=== PATIENT | male | born 1940 | race Caucasian/White ===

== ENCOUNTER 2019-06-09 11:13 | Outpatient (CLI) | payer MEDICARE, OTHER, SELFPAY ==
[2019-06-09 11:50] LABS: Basophils % 0.4 %; Eosinophils # 0.2 10^3/uL (0.0-0.8); Eosinophils % 1.8 %; Hematocrit 38.8 % (42.0-52.0); Hemoglobin 12.2 g/dL (11.7-16.6); Lymphocytes # 1.9 10^3/uL (0.8-4.8); Lymphocytes % 17.1 %; Mean Corpuscular HGB Conc 31.4 g/dL (30.0-36.0); Mean Corpuscular Hemoglobin 30.1 pg (28.0-34.0); Mean Corpuscular Volume 95.8 fL (80-94); Mean Platelet Volume 9.3 fL (7.4-10.4); Monocytes # 0.6 10^3/uL (0.2-0.9); Monocytes % 5.9 %; Neutrophils # 8.1 10^3/uL (1.8-7.7); Neutrophils % 74.4 %; Nucleated Red Blood Cells % 0 %; Platelet Count 323 10^3/cmm (130-400); Red Blood Count 4.05 10^6/uL (4.1-5.3); Red Cell Distribution Width 14.3 % (12.1-15.1); White Blood Count 10.9 10^3/uL (4.0-10.0)
[2019-06-09 12:20] LABS: Albumin Level 3.6 g/dL (3.5-5.2); Anion Gap 14.5 (5-19); Blood Urea Nitrogen 24 mg/dL (8-23); Calcium 9.7 mg/dL (8.5-10.5); Carbon Dioxide 30 mmol/L (22-29); Chloride 103 mmol/L (98-107); Glucose 244 mg/dL (65-115); Phosphorus 3.3 mg/dL (2.5-4.5); Potassium 4.5 mmol/L (3.5-5.1); Sodium 143 mmol/L (136-145)
[2019-06-09 12:22] LABS: Creatinine Urine, Random 97 mg/dL (39-259); Microalbum Creatinine Ratio Ur 10 mg/dL (0-20); Microalbumin Random Urine 1 ug/dL (0-20)
[2019-06-09 13:24] LABS: Calcium 9.6 mg/dL (8.5-10.5); Parathyroid Hormone 100.2 pg/mL (15-65)
[2019-06-09 13:42] LABS: 25 Hydroxy Vitamin D 37 ng/mL (30-100)
== END 2019-06-09 11:14 | disposition home or self-care (01) ==
LOC: LAB 11:15
PROVIDERS: Family Provider Family Medicine; PCP Family Medicine; Visit Provider Nurse Practitioner Family
DX: N18.3 Chronic kidney disease, stage 3 (moderate) (principal)
CPT/HCPCS: 36415; 80069; 82044; 82306; 82310; 83970; 85025

== ENCOUNTER → 2019-08-12 11:13 | Outpatient (BNVA) | payer MEDICARE, OTHER, SELFPAY | PROVIDERS: Family Provider Family Medicine; PCP Family Medicine; Referring Provider Family Medicine; Visit Provider Family Medicine | DX: E11.22 Type 2 diabetes mellitus with diabetic chronic kidney disease (principal); N18.2 Chronic kidney disease, stage 2 (mild); E78.00 Pure hypercholesterolemia, unspecified | CPT/HCPCS: 80053; 80061; 83036 ==

== ENCOUNTER → 2019-08-21 09:59 | Outpatient (BNVA) | payer MEDICARE, OTHER, SELFPAY | PROVIDERS: Family Provider Family Medicine; PCP Family Medicine; Visit Provider Family Medicine | DX: E11.9 Type 2 diabetes mellitus without complications (principal) | CPT/HCPCS: 83036 ==

== ENCOUNTER 2019-11-30 09:13 | Outpatient (CLI) | payer MEDICARE, OTHER, SELFPAY ==
[2019-11-30 10:23] LABS: Basophils % 0.5 %; Eosinophils # 0.3 10^3/uL (0.0-0.8); Eosinophils % 3.5 %; Hematocrit 43.6 % (42.0-52.0); Hemoglobin 13.5 g/dL (11.7-16.6); Lymphocytes # 2.3 10^3/uL (0.8-4.8); Lymphocytes % 27.6 %; Mean Corpuscular Hemoglobin 30.5 pg (28.0-34.0); Mean Corpuscular Volume 98.6 fL (80-94); Mean Platelet Volume 9.5 fL (7.4-10.4); Monocytes # 0.6 10^3/uL (0.2-0.9); Monocytes % 7.3 %; Neutrophils # 5.04 10^3/uL (1.8-7.7); Neutrophils % 60.9 %; Nucleated Red Blood Cells % 0 %; Platelet Count 299 10^3/cmm (130-400); Red Blood Count 4.42 10^6/uL (4.1-5.3); Red Cell Distribution Width 14.5 % (12.1-15.1); White Blood Count 8.3 10^3/uL (4.0-10.0)
[2019-11-30 10:51] LABS: Albumin Level 4.2 g/dL (3.5-5.2); Anion Gap 12.5 (5-19); Blood Urea Nitrogen 30 mg/dL (8-23); Calcium 9.1 mg/dL (8.5-10.5); Carbon Dioxide 28 mmol/L (22-29); Chloride 106 mmol/L (98-107); Glucose 128 mg/dL (65-115); Phosphorus 3.2 mg/dL (2.5-4.5); Potassium 4.5 mmol/L (3.5-5.1); Sodium 142 mmol/L (136-145)
[2019-11-30 11:06] LABS: Calcium 9.8 mg/dL (8.5-10.5); Parathyroid Hormone 125.1 pg/mL (15-65)
[2019-11-30 11:23] LABS: Creatinine Urine, Random 44 mg/dL (39-259)
[2019-11-30 11:28] LABS: Microalbum Creatinine Ratio Ur 23 mg/dL (0-20); Microalbumin Random Urine 1 ug/dL (0-20)
== END 2019-11-30 09:14 | disposition home or self-care (01) ==
LOC: LAB 09:15
PROVIDERS: PCP Family Medicine; Visit Provider Internal Medicine Nephrology
DX: N18.3 Chronic kidney disease, stage 3 (moderate) (principal)
CPT/HCPCS: 36415; 80069; 82044; 82310; 83970; 85025

== ENCOUNTER 2019-12-09 16:47 | Inpatient (IN) | payer MEDICARE, OTHER, SELFPAY ==
[2019-12-09] VITALS (12 sets, daily range): BP systolic 98–137; BP diastolic 61–87; PULSE 62–79; RESP 16–20; TEMP 36.6–36.9; O2SAT 92–100; BMI 26.3
--- NOTE | 2019-12-09 17:03 | XR_ITS ---
WS: [id number] EXAM: RIGHT KNEE: 3 VIEWS DATE OF EXAMINATION: 12/09/2019, 1722 hours COMPARISON: None. HISTORY: Patient is 78 years old with knee pain status post trauma. FINDINGS: Bone density is decreased. No fracture or dislocation is seen. No joint effusion. Extra articular sof t tissues are unremarkable. Arterial calcified plaque formation demonstrated. XR/XR knee RT 3V* [id number] IMPRESSION: No acute bony abnormality.
--- NOTE | 2019-12-09 17:03 | XR_ITS ---
WS: [id number] EXAM: RIGHT HIP: 2 VIEWS DATE OF EXAMINATION: 12/09/2019, 1727 hours COMPARISON: None. HISTORY: Patient is 78 years old with hip pain status post fall. FINDINGS: Bone density is decreased. There are findings of a subcapital femoral neck fracture laterally which t raverses 2 the mid cervical region medially with impaction and slight valgus alignment. No dislocatio n. No definite acetabular fracture. No soft tissue abnormality is seen. XR/XR hip RT 2-3V wo/w pel* [id number] IMPRESSION: Right femur subcapital to mid cervical femoral neck fracture with impaction and valgus alignment.
[2019-12-09] MEDS: morphine 4 mg/mL SDV 1 mL IVP (17:07)
--- NOTE | 2019-12-09 17:19 | ED_ITS ---
HPI - Fall General: Chief Complaint: Fall Stated Complaint: FALL, R HIP PAIN, R ELBOW PAIN Time Seen by Provider: 12/09/19 16:47 History of Present Illness: HPI Narrative: 78-year-old male brought in by EMS after a fall. Is complaining of right hip pain right elbow pain he has an abrasion on the extensor surface of his right elbow it hold his hip in a flexed position complaining of pain mostly laterally. He was coming out of her garage and stumbled and fell landing on the right hip and elbow he did not strike his head he did not lose consciousness. He denies any other injuries. Not on any anticoagulants no recent respiratory symptoms complaint: fall Onset (ago): minute(s) Fall from: standing Fall witnessed: no Place fall occurred: home Loss of consciousness: None Prolonged down time: minute(s) Symptoms prior to fall: none Context: tripped/slipped Location of injury: pelvis (Right hip) Location of injury - extremities: Right: knee Severity: moderate Associated symptoms-after fall: Reports no associated symptoms; Denies abdominal pain or chest pain Review of Systems Const: Denies: fever(s), chills, body aches, change in appetite, fatigue or malaise ENMT: Denies: throat pain, ear or mastoid pain, nasal discharge or nasal congestion Card: Denies: chest pain, edema, dyspnea on exertion or orthopnea Resp: Denies: dyspnea, productive cough or non-productive cough GI: Denies: abdominal pain, nausea, vomiting, hematemesis, coffee ground emesis, diarrhea, constipation, bloating, hematochezia or melena : Denies: flank pain, dysuria, urinary frequency or urinary urgency Skin/Breast: Denies: rash or pruritus PFSH ED PFSH: Medical History Benign essential HTN CKD stage 3 secondary to diabetes Edema Gout Heart murmur Last echocardiogram 2016 demonstrated thickened mitral valve, normal EF, moderate pulmonary hypertension, aortic valve calcification but no stenosis History of arm fracture History of colon polyps Type 2 diabetes mellitus Surgical History History of foot surgery History of lumbar surgery History of tonsillectomy Family History Other Diabetes Social History Smoking and tobacco status: never smoked Alcohol intake: never Physical Exam Const: COMMON NORMALS: no acute distress GENERAL APPEARANCE: cooperative and comfortable ORIENTATION/CONSCIOUSNESS: Yes awake, Yes oriented to person, Yes oriented to place and Yes oriented to time HENMT: COMMON NORMALS: normocephalic and atraumatic HEAD & SCALP: normocephalic and atraumatic Eye: COMMON NORMALS: Equal, round and reactive pupils present, EOMs intact bilaterally, conjunctivae normal and no scleral icterus CONJUNCTIVA: Yes conjunctivae normal PUPIL: Yes Equal, round and reactive pupils present Neck/C-Spine: COMMON NORMALS: full ROM, no lymphadenopathy, supple and no JVD Lymph: LYMPHATIC: no lymphadenopathy noted and no lymphedema noted Resp: COMMON NORMALS: normal respiratory effort, No retractions, No use of accessory muscles and clear to auscultation bilaterally AUSCULTATION: clear to auscultation bilaterally Cardio: COMMON NORMALS: no JVD, regular rate, regular rhythm and No murmurs present (Cardio) RATE: regular rate RHYTHM: regular rhythm GI: COMMON NORMALS: Soft to palpation and No hepatosplenomegaly present AUSCULTATION: Yes normoactive bowel sounds PALPATION: Yes Soft to palpation, No Tenderness to palpation present (GI), No Guarding due to palpation present (GI) and Yes No hepatosplenomegaly present Extremity: COMMON NORMALS: normal to inspection, capillary refill normal, no clubbing, cyanosis or edema, no calf tenderness and no pedal edema Neuro: SENSORIUM/ORIENTATION: Yes oriented to person, Yes oriented to place and Yes oriented to time Course Vital Signs: Vital signs: Vital Signs Temperature 98.6 F 12/12/19 13:53 Pulse Rate 83 12/12/19 13:53 Respiratory Rate 18 12/12/19 13:53 Blood Pressure 137/69 12/12/19 13:53 Pulse Oximetry 96 12/12/19 13:53 MDM - Fall MDM Narrative: Medical decision making narrative: Patient be admitted with right hip fracture. Hospitalist for medical management Ortho consult for surgical repair of hip see admission H&P orders written Lab Data: Labs: Lab Results 08/19/20 08/19/20 08/19/20 Range/Units 17:25 17:25 17:25 WBC 8.3 (4.0-10.0) 10^3/ uL RBC 4.35 (4.1-5.3) 10^6/u L Hgb 13.5 (11.7-16.6) g/dL Hct 42.3 (42.0-52.0) % MCV 97.2 H (80-94) fL MCH 31.0 (28.0-34.0) pg MCHC 31.9 (30.0-36.0) g/dL RDW 14.7 (12.1-15.1) % Plt Count 282 (130-400) 10^3/c mm MPV 9.0 (7.4-10.4) fL Neut % (Auto) 74.8 % Lymph % (Auto) 16.8 % [place] % (Auto) 6.9 % Eos % (Auto) 0.8 % Baso % (Auto) 0.2 % Neut # (Auto) 6.22 (1.8-7.7) 10^3/u L Lymph # (Auto) 1.4 (0.8-4.8) 10^3/u L [place] # (Auto) 0.6 (0.2-0.9) 10^3/u L Eos # (Auto) 0.1 (0.0-0.8) 10^3/u L Baso # (Auto) 0.0 (0.0-0.1) 10^3/u L Nucleated RBC % (a uto) 0 % Nucleated RBCs # 0.0 /100WBC PT 12.90 (12.1-14.9) SECO NDS INR 0.95 (0.8-1.2) APTT 27.4 (23.9-36.7) SECO NDS Sodium 138 (136-145) mmol/L Potassium 4.6 (3.5-5.1) mmol/L Chloride 102 (98-107) mmol/L Carbon Dioxide 26 (22-29) mmol/L Anion Gap 14.6 (5-19) BUN 37 H (8-23) mg/dL Creatinine 2.2 H (0.7-1.2) mg/dL GFR Calculation Not Reportable Glucose 141 H (65-115) mg/dL Calculated Osmolal ity 286 (285-295) mOsm/k g Calcium 9.2 (8.5-10.5) mg/dL Total Bilirubin 0.4 (0.15-1.2) mg/dL AST 27 (0-40) U/L ALT 17 (0-41) U/L Alkaline Phosphata se 91 (40-130) IU/L Total Protein 7.3 (6.6-8.7) g/dL Albumin 4.0 (3.5-5.2) g/dL Globulin 3.3 (1.3-4.6) g/dL Discharge Plan Discharge Patient Disposition: Admitted As Inpatient Admit Provider: Nikolas Canas Clinical Impression: Closed fracture of right hip requiring operative repair, Type 2 diabetes mellitus, Chronic kidney disease (CKD) Condition: Stable Referrals: [facility] [Outside] Frida Azar DO [Primary Care Provider] - 4-7 days (Please call patient at home with a hospital follow up appointment. Faxed information to the clinic. ) Delvis Kennedy MD [Physician] - 1 month (Please call patient at home with a hospital follow up appointment for 1 month from now. Faxed information to clinic.) Discharge Diet: Cardiac and Diabetic Discharge Activity: Limit activity as instructed Patient Instructions: Hydrocodone/Acetaminophen (By mouth), Enoxaparin (Injection), How to Give a Subcutaneous Injection (GEN) Additional Instructions: May remove dressing and replace with bandaid as necessary OK to shower Weight bear as tolerated right hip with walker Interventions: ED Discharge Assessment Last Done: 12/09/19 21:21 ED Charges Last Done: 12/09/19 21:21 Discharge Date/Time: 12/09/19 21:00 Coding Level of Care Code ED Storage Manager for Chg Fwd Exam Comprehensive
[2019-12-09 17:38] LABS: Basophils % 0.2 %; Eosinophils # 0.1 10^3/uL (0.0-0.8); Eosinophils % 0.8 %; Hematocrit 42.3 % (42.0-52.0); Hemoglobin 13.5 g/dL (11.7-16.6); Lymphocytes # 1.4 10^3/uL (0.8-4.8); Lymphocytes % 16.8 %; Mean Corpuscular HGB Conc 31.9 g/dL (30.0-36.0); Mean Corpuscular Volume 97.2 fL (80-94); Monocytes # 0.6 10^3/uL (0.2-0.9); Monocytes % 6.9 %; Neutrophils # 6.22 10^3/uL (1.8-7.7); Neutrophils % 74.8 %; Nucleated Red Blood Cells % 0 %; Platelet Count 282 10^3/cmm (130-400); Red Blood Count 4.35 10^6/uL (4.1-5.3); Red Cell Distribution Width 14.7 % (12.1-15.1); White Blood Count 8.3 10^3/uL (4.0-10.0)
[2019-12-09] MEDS: morphine 4 mg/mL SDV 1 mL 6 MG IVP (17:57)
[2019-12-09] MEDS: ondansetron 2 mg/ML SDV 2 mL 4 MG IVP (17:57)
[2019-12-09 17:59] LABS: Alanine Aminotransferase 17 U/L (0-41); Alkaline Phosphatase 91 IU/L (40-130); Aspartate Amino Transferase 27 U/L (0-40); Blood Urea Nitrogen 37 mg/dL (8-23); Calcium 9.2 mg/dL (8.5-10.5); Carbon Dioxide 26 mmol/L (22-29); Chloride 102 mmol/L (98-107); Globulin 3.3 g/dL (1.3-4.6); Glucose 141 mg/dL (65-115); Osmolality Calculated 286 mOsm/kg (285-295); Sodium 138 mmol/L (136-145); Total Bilirubin 0.4 mg/dL (0.15-1.2); Total Protein 7.3 g/dL (6.6-8.7)
--- NOTE | 2019-12-09 18:00 | XR_ITS ---
WS: [id number] EXAM: AP CHEST: PORTABLE UPRIGHT DATE OF EXAM: 12/09/2019, 1809 hours COMPARISON: NONE HISTORY: Patient is 78 years old with dyspnea and cough. FINDINGS: The cardiac silhouette is considered slightly enlarged The mediastinal contours are normal. The pulmonary vascularity is normal. Radiograph is lordotic in positioning. Lungs are clear of consolida tion. Slight increased density in the left lung base is most likely attenuation artifact from body tuttle bitus and positioning. There is no effusion or pneumothorax. No acute bony abnormality is seen. XR/XR chest 1V portable [id number] IMPRESSION: Radiograph is lordotic in positioning. No definite edema or consolidating infil trate. Slight enlarged cardiac silhouette.
--- NOTE | 2019-12-09 18:00 | ECG_ITS ---
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 Measurements Intervals [place] Rate: 74 P: 38 NH: 212 QRS: -77 QRSD: 133 T: 48 QT: 386 QTc: 428 Interpretive Statements SINUS RHYTHM WITH FIRST DEGREE AV BLOCK RIGHT BUNDLE BRANCH BLOCK [120+ ms QRS DURATION, UPRIGHT V1, 40+ ms S IN I/aVL/V4/V5/V6] LEFT ANTERIOR FASCICULAR BLOCK [QRS AXIS <= -45, QR IN I, RS IN II] POSSIBLE SEPTAL MYOCARDIAL INFARCTION , OF INDETERMINATE AGE [30 ms Q WAVE IN V1/V2] No previous ECG available for comparison Electronically Signed On 12-10-2019 22:39:21 CDT by Brandt Lee M.D. [id number]
[2019-12-09 18:03] LABS: Anion Gap 14.6 (5-19); Potassium 4.6 mmol/L (3.5-5.1)
--- NOTE | 2019-12-09 18:10 | PM.HP ---
Providers/Chief Complaint Primary Care Provider: Frida Azar DO Chief Complaint: FALL, R HIP PAIN, R ELBOW PAIN History of Present Illness Art Forman is a 78 year old male who presents from home. He reports he was taking some groceries and when he tripped and fell. He had right hip pain and right elbow pain. He could not get up. He denies any loss of consciousness, head injury or neck injury. He denies any issues with lung disease, coronary disease, or difficulty with anesthesia. He has not had any exposure to COVID, or had COVID himself. Review of Systems General: Reports: 10 or more systems reviewed and unremarkable except in HPI and below Const: Denies: fever(s) Eyes: Denies: change in vision ENMT: Denies: throat pain Card: Denies: chest pain Resp: Denies: dyspnea GI: Denies: abdominal pain : Denies: difficulty urinating Musc: Reports: extremity pain; Denies: neck pain Skin/Breast: Denies: rash Neuro: Denies: headache(s) Psych: Denies: anxiety Endo: Denies: polyuria Silver/Lymph: Denies: easy bruising Medications/Allergies Home Medications Medication Instructions Recorded Confirmed Last Taken Type amlodipine 2.5 mg tablet 2.5 mg PO DAILY 90 Days #90 tab 06/01/19 11/11/19 Unknown Rx pravastatin 20 mg tablet 20 mg PO DAILY 90 Days #90 tab 06/03/19 11/11/19 Unknown Rx allopurinol 300 mg tablet 300 mg PO DAILY 06/06/19 11/11/19 Unknown History furosemide 40 mg tablet 40 mg PO DAILY 06/06/19 11/11/19 Unknown History sitagliptin 50 mg tablet 50 mg PO DAILY #90 tab 09/11/19 11/11/19 Unknown Rx enalapril maleate 20 mg tablet 20 mg PO DAILY 90 Days #90 tab 10/02/19 11/11/19 Unknown Rx flash glucose scanning reader #1 each 10/13/19 12/09/19 Unknown Rx glipizide 2.5 mg tablet, extended 2.5 mg PO DAILY #30 tab 11/11/19 11/11/19 Unknown Rx release 24 hr flash glucose sensor #5 each 11/24/19 12/09/19 Unknown Rx aspirin [Aspir-81] 81 mg PO DAILY 12/09/19 12/09/19 12/08/19 History cholecalciferol (vitamin D3) 25 mcg PO DAILY 12/09/19 12/09/19 12/09/19 History [Vitamin D3] Allergies Allergy/AdvReac Type Severity Reaction Status Date / Time Penicillins AdvReac rash Verified 12/09/19 18:17 PFSH Acute PFSH: Medical History (Updated 12/09/19 @ 18:18 by Christian Avla MD) Benign essential HTN CKD stage 3 secondary to diabetes Edema Gout Heart murmur Last echocardiogram 2016 demonstrated thickened mitral valve, normal EF, moderate pulmonary hypertension, aortic valve calcification but no stenosis History of arm fracture History of colon polyps Type 2 diabetes mellitus Surgical History History of foot surgery History of lumbar surgery History of tonsillectomy Family History (Updated 12/09/19 @ 18:13 by Christian Alva MD) Other Diabetes Social History (Updated 12/09/19 @ 18:13 by Christian Alva MD) Smoking and tobacco status: never smoked Alcohol intake: never Substance/Drug Use: never Vitals/I&O/Wt Last Vital Signs Temp 98.5 F 12/09/19 16:51 Pulse 70 12/09/19 17:58 Resp 16 12/09/19 17:58 BP 121/87 12/09/19 17:58 Pulse Ox 100 12/09/19 17:58 Weight last 48 hrs Weight 78.471 kg Physical Exam Narrative: EXAM NARRATIVE: General exam is a white male, in no apparent distress currently HEENT: Pupils equally round. Oropharynx clear. Neck is supple no lymphadenopathy or thyromegaly Cardiovascular regular rate and rhythm with a 2/6 systolic murmur Lungs clear no wheezing or crackles Abdomen is soft with positive bowel sounds. No obvious organomegaly was deferred Extremities no cyanosis clubbing or edema. Interestingly he has his right hip flexed. Distal pulses intact. Hematoma present right elbow, lateral side Skin no rash Neuro no focal deficits. Data : 12/09/19 17:25 12/09/19 17:25 Other data: LFTs normal. INR normal. Chest x-ray, EKG pending Hip and pelvis demonstrate a right subcapital hip fracture A&P Assessment and plan (1) Hip fracture: Pain control Orthopedic consultation for definitive treatment Status: Acute (2) Hematoma: Hematoma noted right elbow Check x-rays right elbow Status: Acute Additional A&P Information Chronic kidney disease stage III. Avoid anti-inflammatories. Avoid renal toxic medication. Hypertension, continue home meds. Hold diuretics for now. Hold EMANI inhibitor for now. Reassess tomorrow. Hyperlipidemia continue home meds History of gout Type 2 diabetes. Sliding scale insulin. Full code SCDs for DVT prophylaxis as surgery is anticipated soon Attestations Medical Necessity Statement*: Will need greater than 2 midnight stay for evaluation and treatment of hip fracture Time Spent in Patient Care: Greater than 35 minutes Coding Level of Care Code Acute Forest Ecology Professor for g Fwd Diagnoses Hip fracture S72.009A Hematoma T14.8XXA
[2019-12-09 18:14] LABS: INR 0.95 (0.8-1.2)
[2019-12-09 18:15] LABS: Partial Thromboplastin Time 27.4 SECONDS (23.9-36.7)
--- NOTE | 2019-12-09 18:15 | XR_ITS ---
WS: [id number] EXAM: RIGHT ELBOW: 2 VIEWS DATE OF EXAMINATION: 12/09/2019, 1823 hour COMPARISON: None. HISTORY: Patient is 78 years old with elbow pain. Previously broken elbow. FINDINGS: Overall bone density is somewhat decreased. There are multiple bony fragments seen along the medial h umeral condyle suggesting either prior fracture fragments or enthesopathy reaction related to epicond ylitis in the past. Minimal chronic epicondylitis changes seen laterally as well. No fracture is seen . No joint effusion. Appears to be soft tissue edema over the proximal dorsal forearm on lateral imag ing. Small amount of calcific bursitis changes seen over the olecranon bursa. XR/XR elbow RT 2V [id number] IMPRESSION: No acute bony trauma is seen. Findings suggesting calcific bursitis changes inv olving the olecranon bursa. Old either avulsion fragments or enthesopathy react ion at the level of the medial humeral condyle at the level of the flexor tendo n origin. Slight soft tissue swelling over the proximal dorsal forearm.
--- NOTE | 2019-12-09 20:53 | PC.NURSE ---
Report called to Sun [facility] floor, no further questions. Patient to room 275.
--- NOTE | 2019-12-09 21:19 | PC.NURSE ---
2100 patient to room 275 via ED stretcher by this nurse. Bedside report given to Sun. Patient transferred to bed via 3x nurses and slide board. Patient AAOx4, moves all extremities. UA uncollected, notified nurse.
[2019-12-09 22:11] LABS: Glucose Point of Care 99 mg/dL (70-110)
[2019-12-09] MEDS: sodium chloride 0.9% 1,000 ML 100 ML IV (22:31)
[2019-12-09 23:34] LABS: Add Urine Microscopic? NO
[2019-12-09 23:45] LABS: Bilirubin Urine Neg (NEGATIVE); Blood Urine Neg (Negative); Glucose Urine UA Norm (Normal); Ketones Urine Negative (Negative); Leukocyte Esterase Urine Negative (Negative); Nitrate Urine Negative (Negative); Protein Urine Neg (Negative); Urine Appearance Clear (CLEAR); Urine Color Yellow (Yellow); Urobilinogen Urine Norm (Negative); pH Urine 7 (5-7)
[2019-12-10] VITALS (13 sets, daily range): BP systolic 114–154; BP diastolic 49–70; PULSE 53–84; RESP 16–22; TEMP 36.4–37.9; O2SAT 95–99
--- NOTE | 2019-12-10 | SCC_ITS ---
Procedure Done: Percutaneous pinning right hip 95.3 seconds of fluoroscopic guidance, for a cumulative dose of 11.98 mGy, was provided to Dr. Kennedy by the radiology department. C-arm images of the RIGHT hip were saved for the patient's permanent record. [facility]
[2019-12-10] MEDS: morphine 4 mg/mL SDV 1 mL IVP ×2 (04:48→10:49)
[2019-12-10 04:52] LABS: Basophils % 0.3 %; Eosinophils # 0.2 10^3/uL (0.0-0.8); Eosinophils % 1.2 %; Hematocrit 39.3 % (42.0-52.0); Hemoglobin 12.5 g/dL (11.7-16.6); Lymphocytes # 1.4 10^3/uL (0.8-4.8); Lymphocytes % 10.8 %; Mean Corpuscular HGB Conc 31.8 g/dL (30.0-36.0); Mean Corpuscular Hemoglobin 31.6 pg (28.0-34.0); Mean Corpuscular Volume 99.5 fL (80-94); Mean Platelet Volume 9.3 fL (7.4-10.4); Monocytes # 0.9 10^3/uL (0.2-0.9); Monocytes % 6.9 %; Neutrophils # 10.61 10^3/uL (1.8-7.7); Neutrophils % 80.4 %; Nucleated Red Blood Cells % 0 %; Platelet Count 223 10^3/cmm (130-400); Red Blood Count 3.95 10^6/uL (4.1-5.3); Red Cell Distribution Width 14.7 % (12.1-15.1); White Blood Count 13.2 10^3/uL (4.0-10.0)
[2019-12-10 05:23] LABS: Anion Gap 12.4 (5-19); Blood Urea Nitrogen 36 mg/dL (8-23); Calcium 8.1 mg/dL (8.5-10.5); Carbon Dioxide 25 mmol/L (22-29); Chloride 106 mmol/L (98-107); Glucose 174 mg/dL (65-115); Osmolality Calculated 288 mOsm/kg (285-295); Potassium 5.4 mmol/L (3.5-5.1); Sodium 138 mmol/L (136-145)
--- NOTE | 2019-12-10 08:05 | ANES.PREANE2 ---
Pre-Anesthetic Assessment Pre-Anesthetic Assessment: Height/Weight: Height 1.73 m Weight 78.471 kg Temp Pulse Resp BP Pulse Ox 97.9 F 53 L 18 114/57 97 12/10/19 07:24 12/10/19 07:24 12/10/19 07:24 12/10/19 07:24 12/10/19 07:24 Proposed Procedure: Operation Date: 12/10/19 16:50 Proposed Procedures p Trochanteric Femoral Nail(Right) - Delvis Kennedy MD Familial anesthetic complications: NOne Was Beta Shelley taken within 24 hours: N/A Last intake: NPO > 8 hrs Social: Social History: No alcohol and No tobacco Exam: Pre-Anes Outpt Exam: alert, oriented x 3, clear to auscultation bilaterally and regular rate & rhythm Airway: Cervical ROM: WNL MP: 3 Dentition: Chipped CV/HEM: CV/HEM: HTN : : Chronic renal Insufficiency Metabolic: Metabolic: DM and Hyperlipidemia Anesthetic Plan: ASA status: 4 Anesthesia: MAC Other: MAC if percutaneous pinning, general if trochanteric femora nail Risk of > 500 ml blood loss (7ml/kg in children): No Meds/Allergies Current Medications: Current Medications Generic Name Dose Route Start Last Admin Trade Name Freq PRN Reason Stop Dose Admin Sodium Chloride 1,000 mls @ 100 m ls/hr 12/09/19 21:19 12/09/19 22:31 Sodium Chloride 0.9% IV 100 mls/hr .Q10H ALEJANDRO Administration Insulin Aspart 0 unit 12/09/19 21:19 12/10/19 07:41 Novolog SUBCUT Not Given WM&BEDTIME ALEJANDRO Protocol Morphine Sulfate 4 mg 12/09/19 21:19 12/10/19 04:48 Morphine IVP 4 mg Q4H PRN Administration SEVERE PAIN PFSH Anesthesia PFSH: Medical History (Updated 12/09/19 @ 18:18 by Christian Alva MD) Benign essential HTN CKD stage 3 secondary to diabetes Edema Gout Heart murmur Last echocardiogram 2015 demonstrated thickened mitral valve, normal EF, moderate pulmonary hypertension, aortic valve calcification but no stenosis History of arm fracture History of colon polyps Type 2 diabetes mellitus Surgical History History of foot surgery History of lumbar surgery History of tonsillectomy Family History (Updated 12/09/19 @ 18:13 by Christian Alva MD) Other Diabetes Social History (Updated 12/09/19 @ 18:13 by Christian Alva MD) Smoking and tobacco status: never smoked Alcohol intake: never Substance/Drug Use: never Data Anesthesia CBC & Chem 7: 12/10/19 04:20 12/10/19 04:20 Other Labs: Laboratory Results - last 48 hr 12/09/19 12/09/19 12/09/19 17:25 17:25 17:25 WBC 8.3 RBC 4.35 Hgb 13.5 Hct 42.3 MCV 97.2 H MCH 31.0 MCHC 31.9 RDW 14.7 Plt Count 282 MPV 9.0 Neut % (Auto) 74.8 Lymph % (Auto) 16.8 [place] % (Auto) 6.9 Eos % (Auto) 0.8 Baso % (Auto) 0.2 Neut # (Auto) 6.22 Lymph # (Auto) 1.4 [place] # (Auto) 0.6 Eos # (Auto) 0.1 Baso # (Auto) 0.0 Nucleated RBC % (auto) 0 Nucleated RBCs # 0.0 PT 12.90 INR 0.95 APTT 27.4 Sodium 138 Potassium 4.6 Chloride 102 Carbon Dioxide 26 Anion Gap 14.6 BUN 37 H Creatinine 2.2 H GFR Calculation Not Reportable Glucose 141 H POC Glucose Calculated Osmolality 286 Calcium 9.2 Total Bilirubin 0.4 AST 27 ALT 17 Alkaline Phosphatase 91 Total Protein 7.3 Albumin 4.0 Globulin 3.3 Urine Color Urine Appearance Urine pH Ur Specific [place] Urine Protein Urine Glucose (UA) Urine Ketones Urine Blood Urine Nitrate Urine Bilirubin Urine Urobilinogen Ur Leukocyte Esterase 12/09/19 12/09/19 12/10/19 22:08 23:30 04:20 WBC 13.2 H RBC 3.95 L Hgb 12.5 Hct 39.3 L MCV 99.5 H MCH 31.6 MCHC 31.8 RDW 14.7 Plt Count 223 MPV 9.3 Neut % (Auto) 80.4 Lymph % (Auto) 10.8 [place] % (Auto) 6.9 Eos % (Auto) 1.2 Baso % (Auto) 0.3 Neut # (Auto) 10.61 H Lymph # (Auto) 1.4 [place] # (Auto) 0.9 Eos # (Auto) 0.2 Baso # (Auto) 0.0 Nucleated RBC % (auto) 0 Nucleated RBCs # 0.0 PT INR APTT Sodium Potassium Chloride Carbon Dioxide Anion Gap BUN Creatinine GFR Calculation Glucose POC Glucose 99 Calculated Osmolality Calcium Total Bilirubin AST ALT Alkaline Phosphatase Total Protein Albumin Globulin Urine Color Yellow Urine Appearance Clear Urine pH 7 Ur Specific [place] 1.010 Urine Protein Neg Urine Glucose (UA) Norm Urine Ketones Negative Urine Blood Neg Urine Nitrate Negative Urine Bilirubin Neg Urine Urobilinogen Norm Ur Leukocyte Esterase Negative 12/10/19 04:20 WBC RBC Hgb Hct MCV MCH MCHC RDW Plt Count MPV Neut % (Auto) Lymph % (Auto) [place] % (Auto) Eos % (Auto) Baso % (Auto) Neut # (Auto) Lymph # (Auto) [place] # (Auto) Eos # (Auto) Baso # (Auto) Nucleated RBC % (auto) Nucleated RBCs # PT INR APTT Sodium 138 Potassium 5.4 H Chloride 106 Carbon Dioxide 25 Anion Gap 12.4 BUN 36 H Creatinine 2.0 H GFR Calculation Not Reportable Glucose 174 H POC Glucose Calculated Osmolality 288 Calcium 8.1 L Total Bilirubin AST ALT Alkaline Phosphatase Total Protein Albumin Globulin Urine Color Urine Appearance Urine pH Ur Specific [place] Urine Protein Urine Glucose (UA) Urine Ketones Urine Blood Urine Nitrate Urine Bilirubin Urine Urobilinogen Ur Leukocyte Esterase Cardiac Studies: No Data to Display
[2019-12-10] MEDS: sodium chloride 0.9% 1,000 ML 100 ML IV (08:57)
--- NOTE | 2019-12-10 11:37 | PM.PN ---
Subjective Subjective: Interval history: Art reports his pain is controlled as long as he does not move. Medications: Reviewed: Yes Vitals/I&O/Wt Last Vital Signs Temp 97.9 F 12/10/19 07:24 Pulse 53 L 12/10/19 07:24 Resp 17 12/10/19 10:49 BP 114/57 12/10/19 07:24 Pulse Ox 97 12/10/19 07:24 12/09/19 12/10/19 12/10/19 22:59 06:59 14:59 Intake Total 200 / 200 1000 / 1000 Output Total 515 / 515 Balance -315 / -315 1000 / 1000 Weight last 48 hrs Weight 78.471 kg Physical Exam Narrative: EXAM NARRATIVE: General exam no apparent distress Cardiovascular regular rate and rhythm with a 2/6 systolic murmur Lungs clear no wheezing or crackles Abdomen is soft with positive bowel sounds. No obvious organomegaly Extremities no cyanosis clubbing or edema. Data : 12/10/19 04:20 12/10/19 04:20 A&P Assessment and plan (1) Hip fracture: Pain control Orthopedic consultation for definitive treatment EKG and chest x-ray were performed, no direct contraindications to surgery. Status: Acute (2) Hematoma: Hematoma noted right elbow X-ray showed no concerning fracture Status: Acute Additional A&P Information Mild hyperkalemia. Recheck potassium around 1800. Chronic kidney disease stage III. Avoid anti-inflammatories. Avoid renal toxic medication. Hypertension, continue home meds. Continue to hold diuretics, EMANI inhibitor Hyperlipidemia continue home meds History of gout Type 2 diabetes. Sliding scale insulin. Full code SCDs for DVT prophylaxis as surgery is anticipated soon Attestations Medical Necessity Statement*: Needs continued hospital stay for definitive treatment of hip fracture. Coding Level of Care Code Acute Human Factors Advisor Lead for [facility] Fwd Diagnoses Hip fracture S72.009A Hematoma T14.8XXA
[2019-12-10 11:52] LABS: Glucose Point of Care 131 mg/dL (70-110)
--- NOTE | 2019-12-10 15:48 | PC.NURSE ---
surgery pt went to surgery
--- NOTE | 2019-12-10 17:17 | XR_ITS ---
WS: [id number] EXAM: Fluoroscopy provided to the orthopedic service for visualization during percutaneous pinning of a ri ght femoral neck fracture DATE OF EXAMINATION: 12/10/2019, 1809 hours COMPARISON: Hip films from 12/09/2019 HISTORY: 78 years old with right femoral neck fracture. FLUOROSCOPY TIME: 95.3 seconds FINDINGS: Fluoroscopy provided to the orthopedic service for visualization during percutaneous pinning of a rig ht femoral neck fracture.. Fluoroscopic spot images show 3 percutaneous pins traversing the impacted femoral neck fracture ending within the femoral head on the 2 images presented. Please see operative report for further details.
--- NOTE | 2019-12-10 17:23 | PM.CONSULT ---
Providers/Reason For Consult Consulting Physican/Specialty*: Delvis Kennedy, orthopedics Reason for Consult*: Impacted right femoral neck Attending Physician: Christian Alva MD Primary Care Provider: Frida Azar DO History of Present Illness History of Present Illness Art Forman is a 78 year old male who tripped at home while taking in some groceries with immediate right hip pain. He was unable to ambulate. He was transferred by EMS to our emergency room where radiographs revealed a nondisplaced right femoral neck fracture. He denies any previous history of problems with his right hip or any history of falls Review of Systems Const: Denies: fever(s) or chills Card: Denies: chest pain, palpitations or dyspnea on exertion Resp: Denies: dyspnea or productive cough GI: Denies: abdominal pain, nausea or vomiting Silver/Lymph: Denies: easy bruising or easy bleeding Meds/Allergies Home Medications and Allergies Home Medications Medication Instructions Recorded Confirmed Last Taken Type amlodipine 2.5 mg tablet 2.5 mg PO DAILY 90 Days #90 tab 06/01/19 12/09/19 12/09/19 Rx pravastatin 20 mg tablet 20 mg PO DAILY 90 Days #90 tab 06/03/19 12/09/19 12/08/19 Rx allopurinol 300 mg tablet 300 mg PO DAILY 06/06/19 12/09/19 12/09/19 History furosemide 40 mg tablet 40 mg PO DAILY 06/06/19 12/09/19 12/09/19 History sitagliptin 50 mg tablet 50 mg PO DAILY #90 tab 09/11/19 12/09/19 12/09/19 Rx enalapril maleate 20 mg tablet 20 mg PO DAILY 90 Days #90 tab 10/02/19 12/09/19 12/08/19 Rx flash glucose scanning reader #1 each 10/13/19 12/09/19 Unknown Rx flash glucose sensor #5 each 11/24/19 12/09/19 Unknown Rx aspirin [Aspir-81] 81 mg PO DAILY 12/09/19 12/09/19 12/08/19 History cholecalciferol (vitamin D3) 25 mcg PO DAILY 12/09/19 12/09/19 12/09/19 History [Vitamin D3] glipizide 2.5 mg PO DAILY 12/09/19 12/09/19 Unknown History Allergies Allergy/AdvReac Type Severity Reaction Status Date / Time Penicillins AdvReac rash Verified 12/09/19 18:17 Current Medications Current Medications Generic Name Dose Route Start Last Admin Trade Name Freq PRN Reason Stop Dose Admin Allopurinol 300 mg 12/10/19 09:00 12/10/19 08:59 Zyloprim PO Not Given DAILY ALEJANDRO Amlodipine Besylate 2.5 mg 12/10/19 09:00 12/10/19 08:59 Norvasc PO Not Given DAILY ALEJANDRO Aspirin 81 mg 12/10/19 09:00 12/10/19 08:59 Aspirin Ec PO Not Given DAILY ALEJANDRO Atorvastatin Calcium 20 mg 12/10/19 09:00 12/10/19 08:59 Lipitor PO Not Given DAILY ALEJANDRO Sodium Chloride 1,000 mls @ 100 mls/hr 12/09/19 21:19 12/10/19 08:57 Sodium Chloride 0.9% IV 100 mls/hr .Q10H ALEJANDRO Administration Insulin Aspart 0 unit 12/09/19 21:19 12/10/19 12:35 Novolog SUBCUT Not Given WM&BEDTIME ALEJANDRO Protocol Morphine Sulfate 4 mg 12/09/19 21:19 12/10/19 10:49 Morphine IVP 4 mg Q4H PRN Administration SEVERE PAIN PFSH Acute PFSH: Medical History Benign essential HTN CKD stage 3 secondary to diabetes Edema Gout Heart murmur Last echocardiogram 2015 demonstrated thickened mitral valve, normal EF, moderate pulmonary hypertension, aortic valve calcification but no stenosis History of arm fracture History of colon polyps Type 2 diabetes mellitus Surgical History History of foot surgery History of lumbar surgery History of tonsillectomy Family History (Updated 12/09/19 @ 18:13 by Christian Alva MD) Other Diabetes Social History (Updated 12/09/19 @ 18:13 by Christian Alva MD) Smoking and tobacco status: never smoked Alcohol intake: never Substance/Drug Use: never Vitals/I&O/Wt Last Vital Signs Temp 97.6 F 12/10/19 16:07 Pulse 62 12/10/19 16:07 Resp 18 12/10/19 16:07 BP 128/53 12/10/19 16:07 Pulse Ox 97 12/10/19 16:07 12/10/19 12/10/19 12/10/19 06:59 14:59 22:59 Intake Total 200 / 200 1000 / 1000 Output Total 515 / 515 Balance -315 / -315 1000 / 1000 Weight last 48 hrs Weight 173 lb Physical Exam Narrative: EXAM NARRATIVE: HEAD: Normocephalic/atraumatic. NECK: Soft supple nontender. HEART: Normal heart sounds, regular rhythm. CHEST: Clear to auscultation. ABDOMEN: Soft nontender nondistended. Patient has no obvious malrotation of the right lower extremity. He does have exquisite pain with motion of the right hip Will flex extend his right toes and ankle without any motor deficits. His right lower extremity sensation is intact light touch. He has a strong right dorsalis pedis pulse. Urinary Catheter Management^: [place]: Cath Placed During This Visit: yes Urinary Catheter Date of Insertion: 12/10/19 Urinary Catheter Time of Insertion: 10:45 Data Imaging^: Xray Ortho: My impression: Radiographs of the right hip are reviewed. The patient appears have impacted fracture of the right femoral neck with minimal displacement. No other fractures are identified A&P Assessment and plan (1) Nondisplaced fracture of neck of femur: I discussed treatment options with the patient. I told her without stabilization there is some risk of displacement of the fracture and this result and a hip replacement. I told him we could pin this with minimal morbidity in the operating room. This will allow him to resume full weightbearing status. I told him with surgery I think the risk of this going on to a functional union is very high but certainly there is risk of nonunion, avascular necrosis, and hardware that may need to be addressed later. I discussed risk with inherent with any surgery including bleeding infection. I discussed risk with anesthesia. The patient is in considerable pain unable to ambulate. He agrees to proceed with pinning of the right hip. He seemed to understand options including nonoperative care and agrees to proceed Status: Acute Coding Level of Care Code Acute Referral Coordinator for [facility] Fwd Diagnoses Nondisplaced fracture of neck of femur S72.009A
--- NOTE | 2019-12-10 18:21 | PM.OP ---
Operative Report Date of procedure: December 10, 2019 Pre-op Diagnosis: Right impacted femoral neck fracture Post-op diagnosis: same Post-op Findings: Minimally displaced valgus impacted fracture right femoral neck Procedure Done: Percutaneous pinning right hip Implants: Tan ASNIS 8.0mm cannulated screws x3 Pathology: none sent Anesthesia: General Estimated blood loss (mL): 15 Findings: Patient had a stable appearing valgus impacted fracture of the right femoral neck Procedure: The patient was positioned on the fracture table with his right leg in traction. They were given 2 g of Ancef f. A timeout was performed. A small lateral stab wound was made just below the level of the greater trochanter with a scalpel blade. Under visit so fluoroscopy initial guide pin was driven from a central position just above the level of lesser trochanter into inferior neck and inferior head. Over this was passed an 8.0 mm [place] Asnis screw. A second pin was placed in the superior anterior position and a second screw placed. A third pin was placed in a posterior superior position and a third screw placed. Intraoperative fluoroscopy was used to verify hardware position. The wound was irrigated with saline. Deep tissues were closed with 3-0 Vicryl. A sterile dressing was applied. The patient was taken to recovery room in stable condition.
--- NOTE | 2019-12-10 18:49 | SUR.PHASEI ---
1835 PT VSS PT TO FLOOR PER BED PT AWAKE ALERT WITH GOOD RESP PT RESTLESS, AND LITTLE SHELL TRIBE, PT ORIENTED TO PLACE AND SELF, PT TALKATIVE WITH NURSE ALIA, PT TAKING SIPS OF SODA AND EATING JELLO PT ASKING FOR PAIN MED , ALIA RN AWARE.
[2019-12-10] MEDS: HYDROcodone-acetaminophen 5-325 mg Tablet PO (18:56)
[2019-12-10] MEDS: sodium chloride 0.9% 1,000 ML 80 ML IV (18:59)
--- NOTE | 2019-12-10 19:08 | ANE.PACU2 ---
Inpatient post-anesthesia follow up: Airway intact: Yes Vital signs: Temperature 97.9 F Pulse Rate [Monito r] 68 Pulse Rate 69 Respiratory Rate 18 Blood Pressure 130/57 Pulse Oximetry 99 Oxygen Delivery Me thod [ Nasal Cannula Current Rate & Del christa] Oxygen Delivery Me thod Nasal Cannula Oxygen Flow Rate [ Current Rate 2 & Delivery] Oxygen Flow Rate 2 Fraction of Inspir ed Oxygen Hydration adequate: Yes Nausea and vomiting: No Pain level: 3 Mental status: Baseline
[2019-12-10 19:31] LABS: Potassium 4.8 mmol/L (3.5-5.1)
[2019-12-10 21:51] LABS: Glucose Point of Care 113 mg/dL (70-110)
[2019-12-11] VITALS (7 sets, daily range): BP systolic 124–180; BP diastolic 52–73; PULSE 58–81; RESP 17–18; TEMP 36.6–37.2; O2SAT 91–98
[2019-12-11] MEDS: HYDROcodone-acetaminophen 5-325 mg Tablet PO ×4 (04:19→18:44)
[2019-12-11 05:47] LABS: Basophils # 0.1 10^3/uL (0.0-0.1); Basophils % 0.4 %; Eosinophils # 0.4 10^3/uL (0.0-0.8); Eosinophils % 2.5 %; Hematocrit 39.2 % (42.0-52.0); Hemoglobin 12.1 g/dL (11.7-16.6); Lymphocytes # 1.8 10^3/uL (0.8-4.8); Lymphocytes % 10.8 %; Mean Corpuscular HGB Conc 30.9 g/dL (30.0-36.0); Mean Corpuscular Hemoglobin 30.8 pg (28.0-34.0); Mean Corpuscular Volume 99.7 fL (80-94); Mean Platelet Volume 9.2 fL (7.4-10.4); Monocytes # 1.3 10^3/uL (0.2-0.9); Monocytes % 7.6 %; Neutrophils # 12.93 10^3/uL (1.8-7.7); Neutrophils % 78.3 %; Nucleated Red Blood Cells % 0 %; Platelet Count 225 10^3/cmm (130-400); Red Blood Count 3.93 10^6/uL (4.1-5.3); Red Cell Distribution Width 14.6 % (12.1-15.1); White Blood Count 16.5 10^3/uL (4.0-10.0)
[2019-12-11 06:18] LABS: Anion Gap 10.5 (5-19); Blood Urea Nitrogen 26 mg/dL (8-23); Carbon Dioxide 24 mmol/L (22-29); Chloride 109 mmol/L (98-107); Glucose 126 mg/dL (65-115); Osmolality Calculated 286 mOsm/kg (285-295); Potassium 4.5 mmol/L (3.5-5.1); Sodium 139 mmol/L (136-145)
[2019-12-11 07:08] LABS: Glucose Point of Care 110 mg/dL (70-110)
[2019-12-11] MEDS: atorvastatin 40 mg Tablet 20 MG PO (08:21)
[2019-12-11] MEDS: amlodipine 5 mg Tablet 2.5 MG PO (08:21)
[2019-12-11] MEDS: allopurinol 300 mg Tablet PO (08:21)
[2019-12-11] MEDS: aspirin 81 mg EC Tablet PO (08:21)
[2019-12-11] MEDS: sodium chloride 0.9% 1,000 ML 80 ML IV (08:22)
[2019-12-11 11:07] LABS: Glucose Point of Care 231 mg/dL (70-110)
--- NOTE | 2019-12-11 13:25 | PM.PN ---
Subjective Subjective: Interval history: Patient reports it hurts when he moves otherwise he is doing okay. Medications: Reviewed: Yes Vitals/I&O/Wt Last Vital Signs Temp 98.1 F 12/11/19 11:51 Pulse 58 L 12/11/19 11:51 Resp 18 12/11/19 11:51 BP 124/65 12/11/19 11:51 Pulse Ox 97 12/11/19 11:51 12/10/19 12/11/19 12/11/19 22:59 06:59 14:59 Intake Total 1290 / 2290 480 / 2770 1890 / 1890 Output Total 1160 / 1160 Balance 1290 / 2290 -680 / 1610 1890 / 1890 Weight last 48 hrs Weight 78.471 kg Physical Exam Narrative: EXAM NARRATIVE: General exam no apparent distress Cardiovascular regular rate and rhythm with a 2/6 systolic murmur Lungs a few crackles bilaterally Abdomen is soft with positive bowel sounds. No obvious organomegaly Extremities no cyanosis clubbing or edema. Urinary Catheter Management^: [place]: Cath Placed During This Visit: yes Reason for Continuing Indwelling Catheter: Required Immobilization for Trauma or Surgery or Anesthesia Urinary Catheter Date of Insertion: 12/10/19 Urinary Catheter Time of Insertion: 10:45 Data : 12/11/19 05:10 12/11/19 05:10 A&P Assessment and plan (1) Hip fracture: Postoperative day #1 status post percutaneous pinning Overall doing well. Appreciate orthopedic consultation Rehabilitation. Hopefully can discharge in the next 1 to 2 days to home with home health Status: Deleted (2) Hematoma: Hematoma noted right elbow X-ray showed no concerning fracture. He has full range of motion of the joint. Status: Acute Additional A&P Information Mild hyperkalemia. Resolved Chronic kidney disease stage III. Avoid anti-inflammatories. Avoid renal toxic medication. Renal function improved Hypertension, continue home meds. Likely restart EMANI inhibitor, diuretic tomorrow with lower dose of EMANI inhibitor. Discontinue fluids. Small dose of Lasix today. Ins and outs are mismatched. Hyperlipidemia continue home meds History of gout Type 2 diabetes. Sliding scale insulin. Full code SCDs for DVT prophylaxis as surgery is anticipated soon Attestations Medical Necessity Statement*: Needs continued hospital stay for close monitoring following hip fracture surgery. Coding Level of Care Code Acute Internal Communications Manager for [facility] Fwd Diagnoses Hip fracture S72.009A Hematoma T14.8XXA
[2019-12-11] MEDS: FUROsemide 10 mg/mL SDV 2mL 20 MG IVP (14:04)
[2019-12-11 17:40] LABS: Glucose Point of Care 111 mg/dL (70-110)
--- NOTE | 2019-12-11 21:02 | PM.PN ---
Subjective Subjective: Interval history: Still some right hip pain. Up with therapy today Vitals/I&O/Wt Last Vital Signs Temp 98.6 F 12/11/19 20:00 Pulse 81 12/11/19 20:00 Resp 17 12/11/19 20:00 BP 150/60 12/11/19 20:59 Pulse Ox 96 12/11/19 20:00 12/11/19 12/11/19 12/11/19 06:59 14:59 22:59 Intake Total 480 / 2770 189 / 1890 2009 Output Total 1160 / 1160 1000 / 1000 Balance -680 / 1610 1890 / 1890 -880 / 1010 Physical Exam Narrative: EXAM NARRATIVE: Right hip dressing with sl sanguinous drainage Minimal swelling right thigh Urinary Catheter Management^: [place]: Cath Placed During This Visit: yes Reason for Continuing Indwelling Catheter: Required Immobilization for Trauma or Surgery or Anesthesia Urinary Catheter Date of Insertion: 12/10/19 Urinary Catheter Time of Insertion: 10:45 Data : 12/11/19 05:10 12/11/19 05:10 A&P Assessment and plan (1) Postoperative state: Continue to moblize with therapy. Hopefully discharge home soon. Status: Acute Attestations Medical Necessity Statement*: OK for discharge when independent with walker. Coding Level of Care Code Acute Healthcare Administrative Assistant for [facility] Diagnoses Postoperative state Z98.890
[2019-12-11 21:27] LABS: Glucose Point of Care 179 mg/dL (70-110)
[2019-12-12] VITALS: BP 146/61; PULSE 73; RESP 17; TEMP 37.3; O2SAT 92
[2019-12-12 03:44] LABS: Basophils # 0.1 10^3/uL (0.0-0.1); Basophils % 0.4 %; Eosinophils # 0.6 10^3/uL (0.0-0.8); Eosinophils % 4.1 %; Hematocrit 38.3 % (42.0-52.0); Hemoglobin 12.2 g/dL (11.7-16.6); Lymphocytes # 1.8 10^3/uL (0.8-4.8); Mean Corpuscular HGB Conc 31.9 g/dL (30.0-36.0); Mean Corpuscular Hemoglobin 31.5 pg (28.0-34.0); Mean Platelet Volume 9.5 fL (7.4-10.4); Monocytes # 1.1 10^3/uL (0.2-0.9); Monocytes % 7.7 %; Neutrophils # 10.27 10^3/uL (1.8-7.7); Neutrophils % 74.4 %; Nucleated Red Blood Cells % 0 %; Platelet Count 210 10^3/cmm (130-400); Red Blood Count 3.87 10^6/uL (4.1-5.3); Red Cell Distribution Width 14.7 % (12.1-15.1); White Blood Count 13.8 10^3/uL (4.0-10.0)
[2019-12-12 03:59] LABS: Anion Gap 11.2 (5-19); Blood Urea Nitrogen 27 mg/dL (8-23); Calcium 8.7 mg/dL (8.5-10.5); Carbon Dioxide 26 mmol/L (22-29); Chloride 102 mmol/L (98-107); Glucose 142 mg/dL (65-115); Osmolality Calculated 279 mOsm/kg (285-295); Potassium 4.2 mmol/L (3.5-5.1); Sodium 135 mmol/L (136-145)
[2019-12-12 04:00] VITALS: BP 162/67; PULSE 80; RESP 18; TEMP 37.5; O2SAT 92
[2019-12-12 06:57] LABS: Glucose Point of Care 120 mg/dL (70-110)
[2019-12-12 07:32] VITALS: BP 122/64; PULSE 73; RESP 18; TEMP 37.4; O2SAT 95
--- NOTE | 2019-12-12 08:05 | PC.OT ---
Reviewed OT evaluation and POC/goals by Makayla Mederos OTR/Nataly. Co-signing evaluation and tx plan for TORRES to work with pt.
[2019-12-12] MEDS: atorvastatin 40 mg Tablet 20 MG PO (09:05)
[2019-12-12] MEDS: amlodipine 5 mg Tablet 2.5 MG PO (09:06)
--- NOTE | 2019-12-12 10:36 | PC.SOCIAL ---
IMM Update Pg. 2 of IMM updated and reviewed with patient, who verbalized understanding. Copy provided to patient.
[2019-12-12 11:42] VITALS: BP 137/69; PULSE 83; RESP 18; TEMP 37; O2SAT 96
[2019-12-12 11:44] LABS: Glucose Point of Care 148 mg/dL (70-110)
--- NOTE | 2019-12-12 13:11 | PM.DCS ---
Discharge Providers Date of Admission: 12/09/19 18:03 Date of Discharge: December 12, 2019 Attending Provider at Admission: Nikolas Canas MD Attending Provider at Discharge: Christian Alva MD Primary Care Provider: Frida Azar DO Diagnoses at Discharge Discharge Diagnosis (1) Postoperative state: Status: Acute Reason for Visit Reason for Visit: FALL, R HIP PAIN, R ELBOW PAIN Hospital Course Hospital Course: Art is a 78-year-old white male who presented after a fall, sustaining a right hip fracture. Surgery was consulted, and performed percutaneous pinning on December 09. He was followed closely after the operation and did quite well. He was up and around with physical therapy and it was thought he could be discharged to home with home health. He will finish 13 more days of Lovenox subcutaneous for DVT prophylaxis. Discharge hemoglobin 12.2. Home health and home physical therapy will be arranged. Physical Exam Urinary Catheter Management^: [place]: Cath Placed During This Visit: yes, but has since been removed by the nurse Reason for Continuing Indwelling Catheter: Decision to DC Catheter Urinary Catheter Date of Insertion: 12/10/19 Urinary Catheter Time of Insertion: 10:45 Date Urinary Catheter Removed: 12/12/19 Time Urinary Catheter Discontinued: 10:30 Discharge Data Data Completed and Pending: Completed Studies During Hospitalization Category Date Time Status XR chest 1V vaibhav ble [id number] Stat Exams 12/09/19 18:00 Completed XR elbow RT 2V 73 070 Urgent Exams 12/09/19 18:15 Completed XR hip RT 1V wo/w pel [id number] Routine Exams 12/10/19 Completed XR hip RT 2-3V wo /w pel* [id number] Stat Exams 12/09/19 17:03 Completed XR knee RT 3V* 73 562 Stat Exams 12/09/19 17:03 Completed Labs from last 24 hours 12/12/19 12/12/19 12/12/19 11:19 06:39 03:14 WBC RBC Hgb Hct MCV MCH MCHC RDW Plt Count MPV Neut % (Auto) Lymph % (Auto) [place] % (Auto) Eos % (Auto) Baso % (Auto) Neut # (Auto) Lymph # (Auto) [place] # (Auto) Eos # (Auto) Baso # (Auto) Nucleated RBC % (a uto) Nucleated RBCs # Sodium 135 L Potassium 4.2 Chloride 102 Carbon Dioxide 26 Anion Gap 11.2 BUN 27 H Creatinine 1.6 H GFR Calculation Not Reportable Glucose 142 H POC Glucose 148 120 Calculated Osmolal ity 279 L Calcium 8.7 12/12/19 12/11/19 12/11/19 03:14 20:49 17:37 WBC 13.8 H RBC 3.87 L Hgb 12.2 Hct 38.3 L MCV 99.0 H MCH 31.5 MCHC 31.9 RDW 14.7 Plt Count 210 MPV 9.5 Neut % (Auto) 74.4 Lymph % (Auto) 13.0 [place] % (Auto) 7.7 Eos % (Auto) 4.1 Baso % (Auto) 0.4 Neut # (Auto) 10.27 H Lymph # (Auto) 1.8 [place] # (Auto) 1.1 H Eos # (Auto) 0.6 Baso # (Auto) 0.1 Nucleated RBC % (a uto) 0 Nucleated RBCs # 0.0 Sodium Potassium Chloride Carbon Dioxide Anion Gap BUN Creatinine GFR Calculation Glucose POC Glucose 179 111 Calculated Osmolal ity Calcium Vitals: Last Vital Signs Temp 98.6 F 12/12/19 11:42 Pulse 83 12/12/19 11:42 Resp 18 12/12/19 11:42 BP 137/69 12/12/19 11:42 Pulse Ox 96 12/12/19 11:42 Discharge Plan Discharge Patient Disposition: Home Health Service Condition: Stable Prescriptions: New hydrocodone-acetaminophen 5-325 mg tablet 1 tab PO Q6H PRN (Reason: pain) Qty: 20 RF: 0 enoxaparin [Lovenox] 40 mg/0.4 mL syringe 40 mg SUBCUT Q24H 13 Days Qty: 5.2 RF: 0 Continued allopurinol 300 mg tablet 300 mg PO DAILY RF: 0 furosemide [Lasix] 40 mg tablet 40 mg PO DAILY RF: 0 (DME) FreeStyle Alethea 14 Day [place] Misc See Rx Instructions .ROUTE .MEDSUPPLY Qty: 1 RF: 0 amlodipine 2.5 mg tablet 2.5 mg PO DAILY 90 Days Qty: 90 RF: 3 pravastatin 20 mg tablet 20 mg PO DAILY 90 Days Qty: 90 RF: 3 Januvia 50 mg tablet 50 mg PO DAILY Qty: 90 RF: 3 enalapril maleate 20 mg tablet 20 mg PO DAILY 90 Days Qty: 90 RF: 3 (DME) FreeStyle Alethea 14 Day Sensor Kit See Rx Instructions .ROUTE .MEDSUPPLY Qty: 5 RF: 0 Aspir-81 81 mg Tablet,Delayed Release (Dr/Ec) 81 mg PO DAILY RF: 0 Vitamin D3 25 mcg (1,000 unit) Capsule 25 mcg PO DAILY RF: 0 glipizide 2.5 mg tablet extended release 24hr 2.5 mg PO DAILY RF: 0 Discharge Orders: Discharge Order (Routine); Ordered 12/12/19 Ordered By: Christian Alva Other Ambulatory Orders: DME: Walker (Order) Location: None Selected Ordered By: Delvis Kennedy Referrals: [facility] [Outside] Frida Azar DO [Primary Care Provider] - 4-7 days Delvis Kennedy MD [Physician] - 1 month Discharge Diet: Cardiac and Diabetic Discharge Activity: Limit activity as instructed Activity Restrictions/Additional Instructions: May remove dressing and replace with bandaid as necessary OK to shower Weight bear as tolerated right hip with walker Discharge Attestations Time Spent in Discharge Care*: greater than 30 min Quality Metrics Clinical Quality Measures During this hospital stay, did patient experience: None Coding Level of Care Code Acute Stunt Double for [facility] Fwd Diagnoses Postoperative state Z98.890
[2019-12-12 13:53] VITALS: BP 137/69; PULSE 83; RESP 18; TEMP 37; O2SAT 96
--- NOTE | 2019-12-12 15:36 | PC.CHAP ---
Pastoral Care Encounter/Spiritual Assessment Type of Contact [] Declined die cast supervisor visit [] Patient/Family/Request visit [] Outpatient visit [] Follow-up visit [] Physician referral [] Code/Alert [X] Routine visit [] Staff referral [] Actively dying [] Patient sleeping [] Family support [] [X] Out of room [] Palliative care [] [] Receiving care in room [] Pre-surgical visit [] Trauma [] Long length of stay [] ICU visit [] Other: Relational/Emotional Strength [] Patient feels connected with others/family/visitors/staff [] Distress [] Loneliness/isolation [] Abandonment Spirituality of Patient [] Person of [place] [] Attends Congregation of their [place] [] Believes in Prayer [] Reads Bible or Yarsanism materials [] There are Spiritual issues to be addressed Profile Trimmer Interventions [] Prayer [] Active listening [] Non-anxious presence [] Spiritual/emotional support [] Crisis/trauma care [] Spiritual counseling [] Bereavement support [] Provided bereavement packet [] Provided Bible/devotional materials [] Provided toy/stuffed animal, coloring book to patient or family member [] Provided Communion [] Anointing/[place] [] Salvation [] Completed spiritual assessment [] Other: Impact on Illness or Injury [] Angry [] Fearful [] Anxious [] Often cries [] Exhaustion [] Unable to work [] Unable to attend restoration [] Unable to walk/stand [] Unable to read [] Unable to drive [] Unable to eat/drink [] Unable to sleep [] Unable to be with family [] Patient intubated [] Other: Summary Time spent with patient
== END 2019-12-12 17:42 | disposition home health service (06) | DRG 482 ==
LOC: ER 18:37 → MEDSURG 20:31
PROVIDERS: Orthopaedic Surgery; Admitting Provider Internal Medicine; Emergency Provider Family Medicine; PCP Family Medicine; Visit Provider Internal Medicine
PROC: 0QH634Z Insertion of Internal Fixation Device into Right Upper Femur, Percutaneous Approach (ICD-10-PCS; CPT 27236; principal; 2019-12-10 16:55)
DX: S72.001A Fracture of unspecified part of neck of right femur, initial encounter for closed fracture (principal); W01.0XXA Fall on same level from slipping, tripping and stumbling without subsequent striking against object, initial encounter; E11.22 Type 2 diabetes mellitus with diabetic chronic kidney disease; I12.9 Hypertensive chronic kidney disease with stage 1 through stage 4 chronic kidney disease, or unspecified chronic kidney disease; N18.3 Chronic kidney disease, stage 3 (moderate); M10.9 Gout, unspecified; I27.20 Pulmonary hypertension, unspecified; S50.01XA Contusion of right elbow, initial encounter; E78.5 Hyperlipidemia, unspecified; E87.5 Hyperkalemia; Z79.82 Long term (current) use of aspirin; Z79.84 Long term (current) use of oral hypoglycemic drugs
CPT/HCPCS: 12345; 36415; 36416; 51702; 71045; 73070; 73501; 73502; 73562; 76000; 80048; 80053; 81003; 82962; 84132; 85025; 85610; 85730; 93005; 96372; 96375; 97116; 97161; 97166; 97530; 97535; 99282; C1713; J0690; J1815; J1940; J2270; J2405; J2704; J3010; J3490; J7030

== ENCOUNTER 2019-12-13 11:24 | Emergency (ER) | payer MEDICARE, OTHER, SELFPAY ==
--- NOTE | 2019-12-13 11:48 | ED_ITS ---
HPI - General Adult General: Stated complaint: GENITAL BLEEDING Time Seen by Provider: 12/13/19 11:36 Source: patient and EMS Mode of arrival: EMS Limitations: no limitations History of Present Illness: HPI narrative: 78-year-old male who was recently admitted here for a hip fracture and was discharged yesterday. Patient did have a [place] was here and he did state he had some blood out of his [place]. Patient states that today's he has been passing blood in his urine and has had increased in his urine. He denies any pain. He denies any worsening improving factors. Associated symptoms: Deny chest pain, dyspnea, headache(s), nausea, rash or vomiting Review of Systems Const: Denies: fever(s), chills, body aches or change in appetite Eyes: Denies: blurry vision or eye discomfort ENMT: Denies: throat pain or dental pain Card: Denies: chest pain Resp: Denies: dyspnea GI: Denies: abdominal pain, nausea, vomiting or diarrhea : Reports: hematuria Musc: Denies: neck pain or back pain Skin/Breast: Denies: rash Neuro: Denies: headache(s) Psych: Denies: depression Silver/Lymph: Denies: easy bruising All/Imm: Denies: urticaria PFSH ED PFSH: Medical History Benign essential HTN CKD stage 3 secondary to diabetes Edema Gout Heart murmur Last echocardiogram 2015 demonstrated thickened mitral valve, normal EF, moderate pulmonary hypertension, aortic valve calcification but no stenosis History of arm fracture History of colon polyps Nondisplaced fracture of neck of femur Type 2 diabetes mellitus Surgical History History of foot surgery History of lumbar surgery History of tonsillectomy Postoperative state Family History Other Diabetes Social History Smoking and tobacco status: never smoked Alcohol intake: never Physical Exam Const: COMMON NORMALS: no acute distress, patient oriented x3 and healthy appearing HENMT: COMMON NORMALS: normocephalic and atraumatic HEAD & SCALP: normocephalic and atraumatic Eye: COMMON NORMALS: Equal, round and reactive pupils present and EOMs intact bilaterally PUPIL: Yes Equal, round and reactive pupils present Neck/C-Spine: COMMON NORMALS: full ROM and supple Chest: COMMONS NORMALS: normal inspection of the chest and normal palpation of entire chest wall Resp: COMMON NORMALS: normal respiratory effort, No retractions, No use of accessory muscles and clear to auscultation bilaterally AUSCULTATION: clear to auscultation bilaterally Cardio: COMMON NORMALS: regular rate, regular rhythm and No murmurs present (Cardio) RATE: regular rate RHYTHM: regular rhythm GI: COMMON NORMALS: Normal to inspection, nondistended, normoactive bowel sounds present, Soft to palpation, non-tender and no masses PALPATION: Yes Soft to palpation : OTHER: Blood noticed at meatus Extremity: COMMON NORMALS: normal to inspection and full ROM Neuro: COMMON NORMALS: patient oriented x3, moves all extremities and no focal motor deficits Psych: COMMON NORMALS: mental status grossly normal, Normal thought process present and cooperative THOUGHT PROCESS: Normal thought process present Skin: COMMON NORMALS: no rashes or lesions noted and no wounds GENERAL SKIN EXAM: no rashes or lesions noted MDM - General Adult MDM Narrative: Medical decision making narrative: Patient presents here with hematuria likely from Isma cath while he was here. Did place cath and flushed out his bladder did have some blood in it is now clear. Patient is well- appearing here and his hemoglobin is normal. We will have him follow-up with Dr. Lainez and he is stable for discharge. He is return if worsening. Lab Data: Labs: Lab Results 12/13/19 12/13/19 Range/Units 13:04 13:04 WBC 10.9 H (4.0-10.0) 10^3/ uL RBC 3.86 L (4.1-5.3) 10^6/u L Hgb 11.9 (11.7-16.6) g/dL Hct 37.4 L (42.0-52.0) % MCV 96.9 H (80-94) fL MCH 30.8 (28.0-34.0) pg MCHC 31.8 (30.0-36.0) g/dL RDW 14.6 (12.1-15.1) % Plt Count 219 (130-400) 10^3/c mm MPV 9.1 (7.4-10.4) fL Neut % (Auto) 80.8 % Lymph % (Auto) 7.7 % [place] % (Auto) 7.6 % Eos % (Auto) 3.0 % Baso % (Auto) 0.4 % Neut # (Auto) 8.83 H (1.8-7.7) 10^3/u L Lymph # (Auto) 0.8 (0.8-4.8) 10^3/u L [place] # (Auto) 0.8 (0.2-0.9) 10^3/u L Eos # (Auto) 0.3 (0.0-0.8) 10^3/u L Baso # (Auto) 0.0 (0.0-0.1) 10^3/u L Nucleated RBC % (a uto) 0 % Nucleated RBCs # 0.0 /100WBC PT 14.50 (12.1-14.9) SECO NDS INR 1.10 (0.8-1.2) Discharge Plan Discharge Patient Disposition: Home Clinical Impression: Hematuria Qualifiers: Hematuria type: gross Qualified Code(s): R31.0 - Gross hematuria Condition: Stable Prescriptions: No Action allopurinol 300 mg tablet 300 mg PO DAILY RF: 0 furosemide [Lasix] 40 mg tablet 40 mg PO DAILY RF: 0 (DME) FreeStyle Alethea 14 Day [place] Misc See Rx Instructions .ROUTE .MEDSUPPLY Qty: 1 RF: 0 amlodipine 2.5 mg tablet 2.5 mg PO DAILY 90 Days Qty: 90 RF: 3 pravastatin 20 mg tablet 20 mg PO DAILY 90 Days Qty: 90 RF: 3 Januvia 50 mg tablet 50 mg PO DAILY Qty: 90 RF: 3 enalapril maleate 20 mg tablet 20 mg PO DAILY 90 Days Qty: 90 RF: 3 (DME) FreeStyle Alethea 14 Day Sensor Kit See Rx Instructions .ROUTE .MEDSUPPLY Qty: 5 RF: 0 Aspir-81 81 mg Tablet,Delayed Release (Dr/Ec) 81 mg PO DAILY RF: 0 Vitamin D3 25 mcg (1,000 unit) Capsule 25 mcg PO DAILY RF: 0 glipizide 2.5 mg tablet extended release 24hr 2.5 mg PO DAILY RF: 0 Lovenox 40 mg/0.4 mL syringe 40 mg SUBCUT Q24H 13 Days Qty: 5.2 RF: 0 oxycodone 5 mg tablet 5 mg PO Q6H PRN (Reason: pain) Qty: 20 RF: 0 Discharge Orders: Discharge Order (Routine); Ordered 12/13/19 Ordered By: Kiara Valdez Referrals: Frida Azar DO [Primary Care Provider] - 1-3 days Discharge Diet: Advance as tolerated Discharge Activity: Resume usual activity Patient Instructions: Acute Hematuria (ED) Coding Level of Care Code ED Geothermal Operations Engineer for [facility] Fwd Exam Comprehensive
[2019-12-13 11:54] VITALS: BP 115/61; PULSE 80; RESP 16; TEMP 36.6; O2SAT 99; BMI 25.9
[2019-12-13 13:10] LABS: Basophils % 0.4 %; Eosinophils # 0.3 10^3/uL (0.0-0.8); Hematocrit 37.4 % (42.0-52.0); Hemoglobin 11.9 g/dL (11.7-16.6); Lymphocytes # 0.8 10^3/uL (0.8-4.8); Lymphocytes % 7.7 %; Mean Corpuscular HGB Conc 31.8 g/dL (30.0-36.0); Mean Corpuscular Hemoglobin 30.8 pg (28.0-34.0); Mean Corpuscular Volume 96.9 fL (80-94); Mean Platelet Volume 9.1 fL (7.4-10.4); Monocytes # 0.8 10^3/uL (0.2-0.9); Monocytes % 7.6 %; Neutrophils # 8.83 10^3/uL (1.8-7.7); Neutrophils % 80.8 %; Nucleated Red Blood Cells % 0 %; Platelet Count 219 10^3/cmm (130-400); Red Blood Count 3.86 10^6/uL (4.1-5.3); Red Cell Distribution Width 14.6 % (12.1-15.1); White Blood Count 10.9 10^3/uL (4.0-10.0)
[2019-12-13 14:25] VITALS: BP 135/76; PULSE 86; RESP 12; TEMP 36.8; O2SAT 97
--- NOTE | 2019-12-15 09:46 | DCPLANNER ---
manager creative services had message to schedule a follow up appointment with Dr. Lainez. manager creative services called the office of Dr. Lainez, spoke with Claribel, gave clinic patients information. manager creative services was told that patients information would be printed and reviewed. Clinic will call patient with appointment information.
--- NOTE | 2019-12-18 16:23 | DCPLANNER ---
Patient has a follow up appointment scheduled for Monday, December 23, 2019 at 1:[address] Lainez. Clinic will call patient with appointment information.
--- NOTE | 2020-01-19 08:13 | DCPLANNER ---
Patient had a follow up appointment scheduled for 12.23.[address] Cotton office - patient did attend the appointment.
== END 2019-12-13 14:28 | disposition home or self-care (01) ==
PROVIDERS: Emergency Provider Emergency Medicine; PCP Family Medicine
DX: I12.9 Hypertensive chronic kidney disease with stage 1 through stage 4 chronic kidney disease, or unspecified chronic kidney disease (principal); E11.22 Type 2 diabetes mellitus with diabetic chronic kidney disease; N18.3 Chronic kidney disease, stage 3 (moderate)
CPT/HCPCS: 12345; 36415; 85025; 85610; 99282

== ENCOUNTER → 2019-12-23 12:45 | Outpatient (BNVA) | payer MEDICARE, OTHER, SELFPAY | PROVIDERS: PCP Family Medicine; Visit Provider Urology | DX: R31.0 Gross hematuria (principal); R33.8 Other retention of urine; N99.115 Postprocedural fossa navicularis urethral stricture | CPT/HCPCS: 81001 ==

== ENCOUNTER → 2020-01-12 13:55 | Outpatient (BNVA) | payer MEDICARE, OTHER, SELFPAY | PROVIDERS: PCP Family Medicine; Visit Provider Orthopaedic Surgery | DX: Z87.81 Personal history of (healed) traumatic fracture (principal) | CPT/HCPCS: 73502 ==

== ENCOUNTER 2020-02-17 16:42 | Emergency (ER) | payer OTHER, MEDICARE, SELFPAY ==
[2020-02-17 16:45] VITALS: BP 122/47; PULSE 64; RESP 18; TEMP 36.6; O2SAT 100; BMI 24.7
[2020-02-17 16:54] VITALS: BP 122/47; PULSE 64; RESP 18; O2SAT 100
--- NOTE | 2020-02-17 17:14 | ED_ITS ---
HPI - General Adult General: Chief complaint: General Medical Stated complaint: Bilat pedal edema x1 mo Time Seen by Provider: 02/17/20 17:14 History of Present Illness: HPI narrative: Patient presents with right #3 toe swelling redness. Has mild edema to his right foot for a week and a half. Is [facility]. Is not really having swelling to his left foot he says. Onset (ago): day(s) Location: lower extremity Radiation: non-radiation Severity: mild Severity scale (1-10): 2 Quality: burning Pain Consistency: intermittent Relieving factors: immobilization Exacerbating factors: movement Associated symptoms: Reports no associated symptoms; Deny chest pain, dyspnea, headache(s), nausea, rash or vomiting Treatments prior to arrival: other (Antibiotic) Review of Systems Const: Denies: fever(s), chills or body aches Eyes: Denies: change in vision or blurry vision ENMT: Denies: throat pain or nasal congestion Card: Denies: chest pain or dyspnea on exertion Resp: Denies: dyspnea, productive cough or non-productive cough GI: Denies: abdominal pain, nausea or vomiting : Denies: difficulty urinating Musc: Reports: extremity pain (Right toe has some redness tender has been warm lab work [facility] looks normal uric acid was normal) Skin/Breast: Denies: rash Neuro: Denies: headache(s) Psych: Denies: anxiety or depression Silver/Lymph: Denies: easy bruising PFS ED PFSH: Medical History (Updated 02/17/20 @ 17:33 by AISSATOU Feldman) Benign essential HTN CKD stage 3 secondary to diabetes Edema Gout Heart murmur Last echocardiogram 2016 demonstrated thickened mitral valve, normal EF, moderate pulmonary hypertension, aortic valve calcification but no stenosis History of arm fracture History of colon polyps Nondisplaced fracture of neck of femur Type 2 diabetes mellitus Surgical History History of foot surgery History of lumbar surgery History of tonsillectomy Postoperative state Family History Other Diabetes Social History Smoking and tobacco status: never smoked Alcohol intake: never Physical Exam Const: COMMON NORMALS: no acute distress, average body habitus and patient oriented x3 HENMT: COMMON NORMALS: normocephalic HEAD & SCALP: normal to inspection and normocephalic FACE & SINUS: normal facial exam Eye: COMMON NORMALS: conjunctivae normal GENERAL EYE: appearance normal, both eyes and all related structures CONJUNCTIVA: Yes conjunctivae normal Neck/C-Spine: COMMON NORMALS: no JVD Chest: COMMONS NORMALS: normal inspection of the chest Resp: COMMON NORMALS: normal respiratory effort and clear to auscultation bilaterally AUSCULTATION: clear to auscultation bilaterally Cardio: COMMON NORMALS: no JVD, regular rate and regular rhythm RATE: regular rate RHYTHM: regular rhythm GI: COMMON NORMALS: Normal to inspection, nondistended, normoactive bowel sounds present Extremity: COMMON NORMALS: normal to inspection and full ROM RIGHT LOWER EXTREMITY: Yes foot & digits (3. Toe with redness slight warmth tenderness. Does not go below the base. Cap refills normal foot has 1+ nonpitting edema. Left foot has no edema at all.) Neuro: COMMON NORMALS: patient oriented x3 Course Vital Signs: Vital signs: Vital Signs Temperature 97.9 F 02/17/20 16:45 Pulse Rate 78 02/17/20 18:32 Respiratory Rate 18 02/17/20 18:32 Blood Pressure 108/56 02/17/20 18:32 Pulse Oximetry 98 02/17/20 18:32 Discharge Plan Discharge Patient Disposition: Home Clinical Impression: Cellulitis Qualifiers: Site of cellulitis: extremity Site of cellulitis of extremity: toe Laterality: right Qualified Code(s): L03.031 - Cellulitis of right toe Condition: Stable Prescriptions: New Bactrim DS 800-160 mg tablet 1 tab PO BID 10 Days Qty: 20 RF: 0 No Action allopurinol 300 mg tablet 300 mg PO DAILY RF: 0 furosemide [Lasix] 40 mg tablet 40 mg PO DAILY RF: 0 (DME) FreeStyle Alethea 14 Day Ashby Misc See Rx Instructions .ROUTE .MEDSUPPLY Qty: 1 RF: 0 amlodipine 2.5 mg tablet 2.5 mg PO DAILY 90 Days Qty: 90 RF: 3 pravastatin 20 mg tablet 20 mg PO DAILY 90 Days Qty: 90 RF: 3 Januvia 50 mg tablet 50 mg PO DAILY Qty: 90 RF: 3 enalapril maleate 20 mg tablet 20 mg PO DAILY 90 Days Qty: 90 RF: 3 (DME) FreeStyle Alethea 14 Day Sensor Kit See Rx Instructions .ROUTE .MEDSUPPLY Qty: 5 RF: 0 aspirin [Aspir-81] 81 mg Tablet,Delayed Release (Dr/Ec) 81 mg PO DAILY RF: 0 cholecalciferol (vitamin D3) [Vitamin D3] 25 mcg (1,000 unit) Capsule 25 mcg PO DAILY RF: 0 glipizide 2.5 mg tablet extended release 24hr 2.5 mg PO DAILY RF: 0 Discharge Orders: Discharge Order (Routine); Ordered 02/17/20 Ordered By: Braulio Pulido Referrals: Frida Azar DO [Primary Care Provider] - Discharge Diet: Usual diet Discharge Activity: Resume usual activity Patient Instructions: Cellulitis (ED) Activity Restrictions/Additional Instructions: Follow-up with medical provider as directed. Take medications as prescribed. Return to the ER or your medical provider if condition worsens. Please read and understand discharge instructions. If any questions ask please. 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
[2020-02-17] MEDS: cefTRIAXone 1,000 mg SDV 1000 MG IM (17:54)
[2020-02-17 18:32] VITALS: BP 108/56; PULSE 78; RESP 18; O2SAT 98
== END 2020-02-17 18:33 | disposition home or self-care (01) ==
PROVIDERS: Emergency Provider Nurse Practitioner Family; PCP Family Medicine
DX: L03.031 Cellulitis of right toe (principal); Z79.82 Long term (current) use of aspirin; E11.22 Type 2 diabetes mellitus with diabetic chronic kidney disease; I12.9 Hypertensive chronic kidney disease with stage 1 through stage 4 chronic kidney disease, or unspecified chronic kidney disease; N18.30 Chronic kidney disease, stage 3 unspecified
CPT/HCPCS: 12345; 96372; 99282; J0696

== ENCOUNTER → 2020-02-29 13:16 | Outpatient (BNVA) | payer MEDICARE, OTHER, SELFPAY | PROVIDERS: PCP Family Medicine; Visit Provider Family Medicine | DX: I10 Essential (primary) hypertension (principal) | CPT/HCPCS: 80048 ==

== ENCOUNTER → 2020-03-14 14:06 | Outpatient (BNVA) | payer MEDICARE, OTHER, SELFPAY | PROVIDERS: PCP Family Medicine; Visit Provider Orthopaedic Surgery | DX: Z98.890 Other specified postprocedural states (principal); Z87.81 Personal history of (healed) traumatic fracture | CPT/HCPCS: 73502 ==

== ENCOUNTER 2020-06-02 12:37 | Outpatient (CLI) | payer MEDICARE, OTHER, SELFPAY ==
[2020-06-02 13:21] LABS: Basophils # 0.1 10^3/uL (0.0-0.1); Basophils % 0.5 %; Eosinophils # 0.2 10^3/uL (0.0-0.8); Eosinophils % 1.1 %; Hematocrit 35.5 % (42.0-52.0); Hemoglobin 11.1 g/dL (11.7-16.6); Lymphocytes # 2.3 10^3/uL (0.8-4.8); Mean Corpuscular HGB Conc 31.3 g/dL (30.0-36.0); Mean Corpuscular Hemoglobin 29.4 pg (28.0-34.0); Mean Corpuscular Volume 93.9 fL (80-94); Mean Platelet Volume 8.9 fL (7.4-10.4); Monocytes % 6.3 %; Neutrophils # 12.68 10^3/uL (1.8-7.7); Neutrophils % 77.6 %; Nucleated Red Blood Cells % 0 %; Platelet Count 278 10^3/cmm (130-400); Red Blood Count 3.78 10^6/uL (4.1-5.3); Red Cell Distribution Width 14.6 % (12.1-15.1); White Blood Count 16.4 10^3/uL (4.0-10.0)
[2020-06-02 13:45] LABS: Creatinine Urine, Random 228 mg/dL (39-259); Microalbum Creatinine Ratio Ur 13 mg/dL (0-20); Microalbumin Random Urine 3 ug/dL (0-20)
[2020-06-02 14:05] LABS: 25 Hydroxy Vitamin D 53 ng/mL (30-100); Albumin Level 3.5 g/dL (3.5-5.2); Anion Gap 11.7 (5-19); Blood Urea Nitrogen 29 mg/dL (8-23); Calcium 9.4 mg/dL (8.5-10.5); Carbon Dioxide 28 mmol/L (22-29); Chloride 100 mmol/L (98-107); Glucose 173 mg/dL (65-115); Phosphorus 2.8 mg/dL (2.5-4.5); Potassium 4.7 mmol/L (3.5-5.1); Sodium 135 mmol/L (136-145)
[2020-06-02 14:23] LABS: Calcium 9.2 mg/dL (8.5-10.5); Parathyroid Hormone 63.6 pg/mL (15-65)
== END 2020-06-02 12:38 | disposition home or self-care (01) ==
LOC: LAB 12:42
PROVIDERS: PCP Family Medicine; Visit Provider Registered Nurse
DX: N18.30 Chronic kidney disease, stage 3 unspecified (principal)
CPT/HCPCS: 36415; 80069; 82044; 82306; 82310; 83970; 85025

== ENCOUNTER → 2020-06-14 13:41 | Outpatient (BNVA) | payer MEDICARE, OTHER, SELFPAY | PROVIDERS: PCP Family Medicine; Visit Provider Orthopaedic Surgery | DX: M19.011 Primary osteoarthritis, right shoulder (principal); M25.511 Pain in right shoulder; Z87.81 Personal history of (healed) traumatic fracture | CPT/HCPCS: 73030 ==